=== PATIENT | female | born 1955 | race Caucasian/White ===

== ENCOUNTER → 2016-09-05 | Outpatient (CLI) | payer MEDICAID ==
--- NOTE | 2016-09-05 18:08 | DX ---
Bilateral hips, 2 views each side. HISTORY: Hip pain. FINDINGS: Hip joint spaces are symmetric and normal. Symphysis pubis and sacroiliac joints are unrema rkable. IMPRESSION: Negative bilateral hip radiographs.
--- NOTE | 2016-09-05 18:10 | DX ---
Lumbar spine, 2 views. HISTORY: Hip and back pain. FINDINGS: 38 degrees levoscoliosis from L1 through L4. Degenerative intervertebral disc height loss at L1-L2, L2-L3 and L3-L4. No fracture or subluxation. IMPRESSION: 1. Lumbar levoscoliosis and secondary degenerative changes.
== END ==
LOC: FIMAGING 14:46
PROVIDERS: ATTEND Family Medicine
DX: M25.551 Pain in right hip (principal); M25.552 Pain in left hip; M41.9 Scoliosis, unspecified

== ENCOUNTER → 2016-09-20 | Outpatient (CLI) | payer MEDICAID ==
--- NOTE | 2016-09-20 18:06 | MR ---
MRI of the Lumbar Spine (Without Contrast) at 1637 hours Clinical Indications: Low back pain, left lower extremity radiculopathy, scoliosis, M81.0, M41.9. M54 .5. Technique: Sagittal and axial T1 and T2 and sagittal STIR MR sequences of the lumbar spine without co ntrast. Axial imaging from T12 through S1. Findings: Lumbar vertebral bodies are of normal height without compression fractures. Conus medulla ris appears normal and ends at L1. Moderate levoscoliosis 40 degrees centered at the L2-L3 level. T12-L1: Mild degenerative disk disease, mild disk bulge and mild bilateral facet arthropathy resultin g in mild central canal stenosis without neural foraminal stenosis. L1-L2: Mild degenerative disk disease, mild disk bulge and mild bilateral facet arthropathy resulting in mild central canal stenosis without neural foraminal stenosis. L2-L3: Moderate degenerative disk disease, endplate diskogenic changes, circumferential disk bulge an d osteophytes, asymmetrically more prominent toward the right with moderate bilateral facet arthropat hy and left neural foraminal annular tear resulting in moderate right neural foraminal stenosis, mild to moderate central canal stenosis, without left neural foraminal stenosis. L3-L4: Mild degenerative disk disease, circumferential disk bulge and osteophytes, asymmetrically mor e prominent toward the right and moderate bilateral facet arthropathy resulting in mild to moderate c entral canal stenosis and mild to moderate bilateral neural foraminal stenosis. L4-L5: Mild degenerative disk disease, mild disk bulge and mild bilateral facet arthropathy resulting in mild left neural foraminal stenosis without central canal stenosis. L5-S1: Mild degenerative disk disease, mild disk bulge and mild bilateral facet arthropathy resulting in moderate left neural foraminal stenosis without central canal stenosis. Impression: 1. Moderate levoscoliosis. 2. L5-S1: Moderate left neural foraminal stenosis secondary to mild degenerative disease, disk bulge and mild bilateral facet arthropathy. 3. L3-L4: Mild to moderate central canal stenosis secondary to moderate bilateral facet arthropathy, and disk bulge. 4. L2-L3: Mild to moderate central canal stenosis secondary to moderate bilateral facet arthropathy w ith disk bulge. 5. Please see above findings at specific disk levels.
== END ==
LOC: FIMAGING 16:13
PROVIDERS: ATTEND Family Medicine
DX: M41.9 Scoliosis, unspecified (principal); M54.5 Low back pain; M25.559 Pain in unspecified hip; M12.9 Arthropathy, unspecified; M51.26 Other intervertebral disc displacement, lumbar region; M51.27 Other intervertebral disc displacement, lumbosacral region; M48.06 Spinal stenosis, lumbar region